=== PATIENT | female | born 1950 | race Caucasian/White ===

== ENCOUNTER 2017-03-08 14:54 | Outpatient (CLI) | payer OTHER | END 2017-03-08 20:52 | disposition home or self-care (01) | LOC: SRD 14:54 | PROVIDERS: ATTEND Internal Medicine | DX: S00.33XA Contusion of nose, initial encounter (principal); M25.531 Pain in right wrist; X58.XXXA Exposure to other specified factors, initial encounter; Y93.89 Activity, other specified; Y92.89 Other specified places as the place of occurrence of the external cause; Y99.8 Other external cause status | CPT/HCPCS: 70160-TC ==

== ENCOUNTER 2018-05-02 14:40 | Outpatient (CLI) | payer OTHER | END 2018-05-02 19:18 | disposition home or self-care (01) | LOC: SRD 14:40 | PROVIDERS: ATTEND Internal Medicine | DX: R05 Cough (principal) | CPT/HCPCS: 71046-TC ==